=== PATIENT | male | born 1960 | race Caucasian/White ===

== ENCOUNTER 2018-01-30 12:28 | Emergency (ER) | payer BC, SELFPAY ==
[2018-01-30 12:29] VITALS: BP 141/86; PULSE 63; RESP 18; TEMP 36.6; O2SAT 98; BMI 28.5
--- NOTE | 2018-01-30 13:03 | RAD_ITS ---
STUDY: X-RAY - RIGHT RADIUS AND ULNA REASON FOR EXAM: Male, 57 years old. Cat bite TECHNIQUE: 2 view(s) of the forearm. COMPARISON: None. FINDINGS: There is no demonstrated soft tissue swelling. Normal visualized radius. Normal visualized ulna. RAD/Forearm 2 Views IMPRESSION: Normal x-ray examination of the radius and ulna. Electronically Signed: Chandler Womack DO at 13:46 EDT Tel , Service support ,
[2018-01-30] MEDS: Diphth,Pertuss(Acell),Tet Vac 0.5 ML Vial IM (13:29)
[2018-01-30] MEDS: Amox/Clavulanate 875 MG Tablet PO (13:29)
--- NOTE | 2018-01-30 13:46 | ED.DCSUM_ITS ---
- ER Visit Summary Date of Service: 01/30/18 Chief Complaint: Cat bites History of Present Illness: The patient is a 57 M who states that on Wednesday he was attempting to take a stray cat that they friend did to the that the cat scratched and bit him numerous times on the arms. He states that his right forearm is tender and appears to have gotten infected and there is now a ring of erythema. He notes the left hand is scratched as well as the forearm. The left thumb is swollen and tender and minimally red. He went to urgent care and they suggested he come to the emergency department. Physical Examination: Afebrile vital signs are stable Gen: Well-nourished well-developed Head: Normocephalic atraumatic Eyes: Perrl EOMI ENT: TMs clear no rhinorrhea moist mucous membranes Neck: Supple no lymphadenopathy no JVD nontender CVS: Regular rate rhythm no murmurs normal S1-S2 Respiratory: No distress clear to auscultation bilaterally chest nontender Abdomen: Soft nontender nondistended normal bowel sounds no masses Back: Nontender Extremity: There is an area of erythema right anterior forearm consistent with cellulitis with a bite in the center that has some firmness but without expression of pus. The left thumb is mildly swollen with some erythema and obvious breaks in the skin there is no obvious felon. There is no lymphangitic streaking on either side. Skin: Normal color no rash Neuro: alert orientated ?3 CN II-XII intact normal strength sensation reflexes gait cerebellar Psych: Normal affect normal mood Test Results: X-ray of the forearm does not reveal any obvious tooth. Emergency Department Course and Treatment: Tetanus was updated. He will be placed on Augmentin. Monitor for worsening (lymphangitis, fever, etc.) Impression: 1. Bite cellulitis right forearm left hand This note was generated with [employer] dictation software. It may contain incorrect words, spelling, and punctuation that were not noted in review of the chart prior to signing ED Disposition - Plan for ED Patient: Disposition: Home or Assisted Living Chief Complaint: Bite Instructions: ED Infec Skin Cellulitis Prescriptions: Amox/Clavulanate Tablet [Augmentin Tablet] 875 mg PO Q12H #20 tab Referrals: Boy Swann MD [Primary Care Provider] - 3-5 Days
== END 2018-01-30 14:52 | disposition home or self-care (01) ==
PROVIDERS: Emergency Provider Emergency Medicine; Family Provider Family Medicine; PCP Family Medicine
DX: L03.113 Cellulitis of right upper limb (principal); L03.114 Cellulitis of left upper limb; Z23 Encounter for immunization; W55.01XA Bitten by cat, initial encounter; Y93.89 Activity, other specified; Y92.89 Other specified places as the place of occurrence of the external cause; Y99.8 Other external cause status
CPT/HCPCS: 73090; 90715; 99282

== ENCOUNTER → 2018-03-18 08:46 | Outpatient (CLI) | payer BC, SELFPAY | PROVIDERS: Family Provider Family Medicine; PCP Family Medicine; Visit Provider Family Medicine | DX: R00.2 Palpitations (principal) | CPT/HCPCS: 93225; 93226 ==

== ENCOUNTER 2021-05-26 18:10 | Emergency (ER) | payer BC, SELFPAY ==
[2021-05-26 18:12] VITALS: BP 112/74; PULSE 92; RESP 16; TEMP 37.6; O2SAT 100; BMI 29.2
--- NOTE | 2021-05-26 18:40 | CT_ITS ---
INDICATION: sore throat pain with swallowing EXAMINATION: CT Soft Tissue Neck W/ Contrast Injection TECHNIQUE: Helically acquired images were obtained of the neck following IV contrast. A radiation dose optimization technique was used for this scan. IV Contrast dosage and agent: 75 cc [id number] COMPARISON: None. FINDINGS: NASOPHARYNX: Unremarkable. SUPRAHYOID NECK: Unremarkable oropharynx, oral cavity, parapharyngeal space, and retropharyngeal space. INFRAHYOID NECK: Unremarkable larynx, hypopharynx, and supraglottis. THYROID: No focal lesions. SALIVARY GLANDS: Unremarkable. LYMPH NODES: No cervical or supraclavicular lymphadenopathy. VASCULAR STRUCTURES: Unremarkable. VISUALIZED PORTIONS OF THE ORBITS, PARANASAL SINUSES, MASTOID AIR CELLS AND SKULL BASE: Unremarkable. BONES: Moderate degenerative changes of the cervical spine.. THORACIC INLET: Clear lung apices. CT/Soft Tissue Neck WITH Contrast IMPRESSION: No acute abnormalities. Electronically Signed: Lawrence Song MD at 19:52 EDT Tel , Service support ,
[2021-05-26] MEDS: Morphine 4 MG/ML Syringe IV ×3 (18:55→22:37)
[2021-05-26] MEDS: dexAMETHasone 10 MG/ML Vial IV (18:55)
[2021-05-26] MEDS: 0.9% Normal Saline 1,000 ML 1000 ML IV (18:55)
--- NOTE | 2021-05-26 18:55 | EDS_ITS ---
HPI History of Present Illness Chief Complaint: Sore Throat Informant: patient and spouse/S.O. Narrative Narrative: Patient has had a sore throat since Wednesday. He did have a fever today of about 101. He had a virtual visit with urgent care. They read furred him in for strep testing which was negative. He also had a negative Covid at home this morning. There is another Covid that was done earlier today. He has a rare cough but no sputum production or dyspnea. He thinks this is coughing because of his sore throat. No rashes. No nausea vomiting. No chest pain or abdominal pain. No known exposure to infections. 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 She is therefore exposed to multiple illnesses. He came in tonight because it hurts to swallow so much that he is not eating or drinking much. He denies any change in his urination though. Nothing really makes his symptoms better or worse. Medicines are reviewed. He is not on any JEFF inhibitor's or ARB medications. Past medical history includes high blood pressure, high cholesterol, benign prostatic hypertrophy Medication list reviewed No known drug allergies No recent surgeries Non-smoker lives with [facility] Medical History Hypertension Home Medications aspirin 81 mg PO DAILY@0800 08/15/17 [History Last Taken Unknown] atenolol 50 mg PO DAILY 08/15/17 [History Last Taken Unknown] atorvastatin [Lipitor] 20 mg PO DAILY 08/15/17 [History Last Taken Unknown] hydrochlorothiazide 25 mg PO DAILY 08/15/17 [History Last Taken Unknown] tamsulosin 0.4 mg PO DAILY 08/15/17 [History Last Taken Unknown] Allergy/AdvReac Type Severity Reaction Status Date / Time No Known Allergies Allergy Verified 05/26/21 18:12 Social History Smoking Status: Never smoker ROS ROS ED Constitutional Constitutional ED: Reports fever(s); Denies chills Eyes Eyes: Denies blurry vision or change in vision ENT ENT ED: Reports sore throat; Denies ear pain or rhinorrhea Cardiovascular Cardiovascular: Denies chest pain or palpitations Respiratory/Chest Respiratory/Chest: Reports cough; Denies dyspnea, dyspnea on exertion or sputum Gastrointestinal Gastrointestinal: Denies nausea or vomiting Genitourinary Genitourinary ED: Denies dysuria or hematuria Musculoskeletal Musculoskeletal: Denies myalgias Integumentary Denies abscess, Abrasions or rash Neurologic Neurologic: Denies headache(s) Endocrine Endocrinology: Denies polydipsia or polyuria Allergic/Immunologic Allergic/Immunologic ED: Reports other Details: Patient has a sore throat but no indication of swelling. ; Denies mouth swelling, tongue swelling or urticaria EXAM Physical Exam Const Vital Signs: 05/26/21 18:12 05/26/21 19:46 05/26/21 21:34 Temperature 99.7 F H 101.9 F H 99.9 F H Temperature Source Temporal Oral Oral Pulse Rate 92 92 95 Respiratory Rate 16 16 16 Blood Pressure 112/74 147/83 H Blood Pressure Mean 86 104 Pulse Ox 100 98 94 Oxygen Delivery Method Room Air 05/26/21 22:44 05/26/21 23:41 Temperature 99.7 F H Temperature Source Oral Pulse Rate 88 78 Respiratory Rate 16 16 Blood Pressure 116/70 101/66 Blood Pressure Mean 85 Pulse Ox 91 94 Oxygen Delivery Method Room Air Positive well nourished and well developed General Appearance ED: well developed and NAD HEENT Reports moist mucous membranes HEENT Narrative: Patient does have a scratchy voice but he is able to handle secretions well. No Ludewig's angina. Posterior pharynx has some mild erythema but no notable exudate. No asymmetry. No notable swelling. Eyes PERRL and EOMs intact bilaterally General Eye ED: Negative for pale conjunctiva or scleral icterus Neck Neck Narrative: Mild shotty anterior lymph nodes bilaterally. There is no lateralization of central structures. There is no stridor. Chest Wall inspection of chest normal Resp normal respiratory effort and clear to auscultation bilaterally Cardio regular rate and regular rhythm GI normal to inspection, nondistended, normoactive bowel sounds, non-tender and non-distended Palpation: soft Back/Spine no CVA tenderness Extremity normal to inspection General Extremety ED: Negative for edema or tenderness General Extremity: Negative for edema Neuro oriented x3 Sensorium / Orientation: alert Skin no rashes or lesions noted MDM MDM MDM Narrative Medical decision making narrative: Patient's blood work including white count and hemoglobin are normal. Electrolytes show no marked abnormality. He has minimal decrease of potassium that I do not think is the cause of his symptoms. We did CT scan of his neck that shows no acute process. Patient was still having discomfort. Was mostly when swallowing. We did do Covid that showed negative. He did a single view chest x-ray looked at by me shows no sign of significant infiltrate. Patient is clearing his throat but not coughing. He does manage secretions well. We gave him some lidocaine which essentially completely relieved his symptoms. This leads me to believe that he likely has irritation of his pharyngeal and upper esophageal area. I do not see ulcerations typical of herpangina but his symptoms are similar to this. I do not see thrush. I think this is likely viral. This is what his primary physician thought. He has been given Decadron that will hopefully kick in. I will try some Carafate slurry to see if that will help him. We will give him some meds here for pain. He is much more relaxed than when he came in. We discussed reasons to return that include coughing, shortness of breath, inability to swallow or other concerns. Lab Data Attestation: I reviewed the patient's lab results. Labs: Laboratory Results - last 24 hr 05/26/21 05/26/21 18:57 18:57 WBC 9.6 RBC 4.49 L Hgb 13.2 Hct 39.6 L MCV 88.2 MCH 29.4 MCHC 33.3 RDW Std Deviation 41.2 RDW Coeff of Norah 12.7 Plt Count 145 L MPV 10.1 Immature Gran % (Auto) 0.400 Neut % (Auto) 78.3 H Lymph % (Auto) 7.9 L [place] % (Auto) 13.3 H Eos % (Auto) 0.0 Baso % (Auto) 0.1 Absolute Neuts (auto) 7.5 Absolute Lymphs (auto) 0.76 L Nucleated RBC % 0 Sodium 138 Potassium 3.4 L Chloride 101 Carbon Dioxide 29.0 Anion Gap 8 BUN 17 Creatinine 0.94 Estim Creat Clear Calc 89.43 Est GFR (MDRD) Af Amer 104 Est GFR (MDRD) Non-Af 86 BUN/Creatinine Ratio 18.1 Glucose 119 H Calcium 8.8 Radiography Diagnostic Testing: Clinical Impression(s) from Imaging Studies Soft Tissue Neck CT 05/26/21 18:40 IMPRESSION: No acute abnormalities. Electronically Signed: Lawrence Song MD at 19:52 EDT Tel , Service support , Discharge Plan Triage Chief Complaint: Sore Throat Other Complaint: Fever ED Provider: Jarek Zuñiga Dx/Rx/DC Orders Clinical Impression: Odynophagia, Acute sore throat Instructions: ED Pharyngitis, Viral, ED Dysphagia (Adult) Prescriptions: No Action atorvastatin [Lipitor] 20 MG tablet 20 mg PO DAILY RF: 0 tamsulosin 0.4 MG capsule 0.4 mg PO DAILY RF: 0 aspirin 81 MG tablet,chewable 81 mg PO DAILY@0800 RF: 0 hydrochlorothiazide 25 MG tablet 25 mg PO DAILY RF: 0 atenolol 50 tablet 50 mg PO DAILY RF: 0 Primary Care Provider: Boy Swann Referrals: Boy Swann MD [Primary Care Provider] - 1-2 Days if not improving Disposition Disposition: Home, Self Care Discharge Date/Time: 05/26/21 23:49
[2021-05-26 19:05] LABS: Absolute Lymphocyte Count 0.76 X10^3/uL (0.83-4.51); Absolute Neutrophil Count 7.5 X10^3/uL (2.0-7.7); Basophil# 0.01 X10^3/uL; Basophil% 0.1 % (0-1); Hematocrit 39.6 % (40-54); Hemoglobin 13.2 g/dL (13.0-16.5); Lymphocyte # 0.76 X10^3/ul (0.83-4.51); Lymphocyte % 7.9 % (19-41); Mean Corp Hgb Conc 33.3 g/dL (32-36); Mean Corpuscular Hgb 29.4 pg (27.0-32.0); Mean Corpuscular Volume 88.2 fL (80-94); Mean Platelet Vol. 10.1 fl (6.2-12.0); Monocyte# 1.27 X10^3/uL; Monocyte% 13.3 % (0-10); NRBC Flagged by Analyzer 0 % (0-5); Neutrophil # 7.49 X10^3/uL (2.7-7.7); Neutrophil % 78.3 % (47-70); Platelet Count 145 K/mm3 (150-450); RBC Distribution Width CV 12.7 % (11.6-14.6); RBC Distribution Width SD 41.2 fl (35.1-43.9); Red Blood Count 4.49 M/mm3 (4.6-6.2); White Blood Count 9.6 K/mm3 (4.4-11.0)
[2021-05-26 19:20] LABS: Anion Gap 8 (5-15); BUN 17 mg/dL (7-18); BUN/Creat Ratio 18.1 RATIO (10-20); Calcium,Total 8.8 mg/dL (8.5-10.1); Chloride 101 mmol/L (98-107); Creatinine, Serum 0.94 mg/dL (0.70-1.30); EST Glomerular Filtration Rate 86 mL/min (>60); Est Glom Filt Rate - Afr Amer 104 mL/min (>60); Estimated Creatinine Clearance 89.43 ml/min; Glucose 119 mg/dL (74-106); Potassium 3.4 mmol/L (3.5-5.1); Sodium Level 138 mmol/L (136-145)
[2021-05-26 19:46] VITALS: BP 147/83; PULSE 92; RESP 16; TEMP 38.8; O2SAT 98
[2021-05-26] MEDS: Acetaminophen 500 MG Tablet 1000 MG PO (19:59)
[2021-05-26] MEDS: Mag Hydrox/Al Hydrox/Simeth 30 ML UDC PO (21:10)
--- NOTE | 2021-05-26 21:25 | RAD_ITS ---
STUDY: X-RAY CHEST REASON FOR EXAM: Male, 60 years old. cough TECHNIQUE: Single AP portable view of the chest. COMPARISON: None. FINDINGS: Ill-defined subpleural groundglass opacities are seen more prominent in the lung bases , may represent atypical pneumonia or viral pneumonia (COVID-19 ?). There is no demonstrated pleural abnormality. Normal size heart. Normal mediastinum and tatiana. Normal visualized pulmonary arteries. Normal visualized aortic arch and descending thoracic aorta. Normal visualized thoracic spine. Normal visualized ribs, clavicles, and shoulders. There is no demonstrated abnormality of the visualized soft tissue structures of the upper abdomen. RAD/Chest 1 View IMPRESSION: Ill-defined subpleural groundglass opacities are seen more prominent in the lung bases , may represent atypical pneumonia or viral pneumonia (COVID-19 ?). Electronically Signed: Alex Rodriguez MD at 0:40 EDT Tel , Service support ,
[2021-05-26 21:34] VITALS: PULSE 95; RESP 16; TEMP 37.7; O2SAT 94
--- NOTE | 2021-05-26 22:01 | ED.RN ---
lungs w some crackels and upper airway congestion, xray ordered
[2021-05-26 22:44] VITALS: BP 116/70; PULSE 88; RESP 16; TEMP 37.6; O2SAT 91
[2021-05-26] MEDS: HYDROmorphone 0.5 MG/0.5 ML SYRINGE IV (23:35)
[2021-05-26 23:41] VITALS: BP 101/66; PULSE 78; RESP 16; O2SAT 94
== END 2021-05-26 23:49 | disposition home or self-care (01) ==
PROVIDERS: Emergency Provider Emergency Medicine; PCP Family Medicine
DX: R13.10 Dysphagia, unspecified (principal); J02.9 Acute pharyngitis, unspecified; Z79.82 Long term (current) use of aspirin; Z79.899 Other long term (current) drug therapy
CPT/HCPCS: 70491; 71045; 80048; 85025; 87426; 96361; 96374; 96375; 96376; 99284; Q9967; A4216